=== PATIENT | male | born 1935 | race Hispanic/Latino ===

== ENCOUNTER 2018-02-09 16:04 | Inpatient (IN) | payer OTHER ==
[2018-02-09] MEDS ORDERED: Carbidopa/Levodopa 25/250 PO STA (17:17)
--- NOTE | 2018-02-09 17:19 | ED PDOC ---
HPI: Psych/Substance Abuse Time Seen by Provider: 02/09/18 17:16 Chief Complaint (Nursing): Psychiatric Evaluation Chief Complaint (Provider): PSYCH History Per: Patient (82 Y/O MALE H/O [facility], SENT BY [facility] FOR EVALUATION OF SUICIDAL IDEATION AND POSSIBLE MEKHI-PSYCH ADMISSION BY PSYCHIATRIST..) Past Medical History Reviewed: Historical Data, Nursing Documentation, Vital Signs Vital Signs: Last Vital Signs Temp 98.2 F 02/09/18 16:22 Pulse 74 02/09/18 16:22 Resp 16 02/09/18 16:22 BP 117/54 L 02/09/18 16:22 Pulse Ox 98 02/09/18 16:22 - Medical History PMH: HTN, Parkinson's Disease - Family History Family History: States: Unknown Family Hx - Immunization History Hx Tetanus Toxoid Vaccination: No Hx Influenza Vaccination: No Hx Pneumococcal Vaccination: No - Allergies Allergies/Adverse Reactions: Allergies Allergy/AdvReac Type Severity Reaction Status Date / Time Penicillins Allergy RASH Verified 02/09/18 16:22 Review of Systems ROS Statement: Except As Marked, All Systems Reviewed And Found Negative Physical Exam - Reviewed Nursing Documentation Reviewed: Yes Vital Signs Reviewed: Yes - Physical Exam Appears: Positive for: Well, Non-toxic, No Acute Distress Head Exam: Positive for: ATRAUMATIC, NORMAL INSPECTION, NORMOCEPHALIC Skin: Positive for: Normal Color, Warm, DRY Eye Exam: Positive for: EOMI, Normal appearance, PERRL ENT: Positive for: Normal ENT Inspection Neck: Positive for: Normal, Painless ROM Cardiovascular/Chest: Positive for: Regular Rate, Rhythm Respiratory: Positive for: CNT, Normal Breath Sounds Gastrointestinal/Abdominal: Positive for: Normal Exam, Soft Back: Positive for: Normal Inspection Extremity: Positive for: Normal ROM Neurologic/Psych: Positive for: Alert, Oriented - Laboratory Results Result Diagrams: 02/09/18 17:44 02/09/18 17:44 - ECG O2 Sat by Pulse Oximetry: 98 - Progress ED Course And Treament: cxr: nad Disposition - Clinical Impression Clinical Impression: Suicidal ideation - Patient ED Disposition Is Patient to be Admitted: Transfer of Care - Disposition Disposition: Transfer of Care Disposition Time: 19:58 Condition: FAIR Patient Signed Over To: Zurdo Ochoa Handoff Comments: pending crisis eval
[2018-02-09 17:50] LABS: BASO % 0.3 % (0.0-2.0); EOS # 0.3 K/uL (0.0-0.7); EOS % 3.6 % (0.0-4.0); LYMPH # 3.4 K/uL (1.0-4.3); LYMPH % 42.2 % (20.0-40.0); MEAN CELL VOLUME 94.1 fl (80.0-94.0); MEAN CORPUSCULAR HEMOGLOBIN 30.8 pg (27.0-31.0); MEAN CORPUSCULAR HGB CONC 32.8 g/dL (33.0-37.0); MEAN PLATELET VOLUME 8.4 fl (7.2-11.7); MONO # 0.7 K/uL (0.0-0.8); MONO % 8.6 % (0.0-10.0); NEUT # 3.7 K/uL (1.8-7.0); NEUT % 45.3 % (50.0-75.0); NRBC % 0.1 % (0.0-0.0); RBC 3.9 Mil/uL (4.40-5.90); RED CELL DISTRIBUTION WIDTH 14.5 % (11.5-14.5); WHITE BLOOD COUNT 8.1 K/uL (4.8-10.8)
--- NOTE | 2018-02-09 17:55 | RAD ---
Date of service: 02/09/2018 HISTORY: ROUTINE COMPARISON: No prior. FINDINGS: LUNGS: No active pulmonary disease. PLEURA: No significant pleural effusion identified, no pneumothorax apparent. CARDIOVASCULAR: Atherosclerotic calcifications identified primarily aortic arch. No radiographic findings to suggest acute or significant cardiovascular disease. Incidental Finding(s): Postoperative changes related to sternotomy. OSSEOUS STRUCTURES: No significant abnormalities. VISUALIZED UPPER ABDOMEN: Normal. OTHER FINDINGS: None. IMPRESSION: No active disease.
[2018-02-09 18:04] LABS: ALB/GLOB RATIO 1.2 (1.0-2.1); ALBUMIN 4.1 g/dL (3.5-5.0); ALT/SGPT 34 U/L (21-72); AST/SGOT 34 U/L (17-59); BLOOD UREA NITROGEN 26 mg/dl (9-20); CALCIUM 9.1 mg/dL (8.4-10.2); GFR NON-AFRICAN AMERICAN > 60
[2018-02-09 18:49] LABS: SQUAMOUS EPITHIAL < 1 /hpf (0-5); URINE BACTERIA RARE (<OCC); URINE BILIRUBIN NEGATIVE (NEGATIVE); URINE BLOOD SMALL (NEGATIVE); URINE CLARITY CLEAR (Clear); URINE COLOR YELLOW (YELLOW); URINE GLUCOSE (UA) NEG (NEGATIVE); URINE LEUKOCYTE ESTERASE NEG Leu/uL (Negative); URINE PROTEIN NEGATIVE (NEGATIVE); URINE UROBILINOGEN 0.2-1.0 mg/dL (0.2-1.0)
[2018-02-09 19:06] LABS: BARBITURATES, UR NEGATIVE (NEGATIVE); BENZODIAZEPINES, UR NEGATIVE (NEGATIVE); OPIATES, UR NEGATIVE (NEGATIVE); PHENCYCLIDINE, UR NEGATIVE (NEGATIVE)
--- NOTE | 2018-02-09 21:19 | ED PDOC ---
- Laboratory Results Result Diagrams: 02/09/18 17:44 02/09/18 17:44 - ECG ECG: Positive for: Interpreted By Me ECG Rhythm: Positive for: Sinus Rhythm. Negative for: ST/T Changes Rate: 74 O2 Sat by Pulse Oximetry: 98 - Progress ED Course And Treament: 1999 Signed out to me pending crisis disposition. 2030 On my initial evaluation, pt. in no distress. L sided facial droop noted. Pt. is AOx1. Previous records do not indicate L sided facial droop. Spoke with Yoni Brown RN director who has cared for pt. in the past, states that no note indicate L sided facial droop but she has a picture of the patient taken on 07/2017 which does show a L sided facial droop. Case d/w Dr. Resendiz, pt.'s PMD, who also reports that L sided facial droop is chronic and that pt. has hx of previous CVAs. As per Don CARPENTER who evaluated pt and spoke with Dr. Martinez. Pt. is to be admitted under Dr. Martinez for Major Depressive Disorder. Disposition - Clinical Impression Clinical Impression: Major depressive disorder - POA Present On Arrival: None - Disposition Disposition: Admitted as In-Patient Disposition Time: 20:30 Condition: FAIR
[2018-02-09] MEDS ORDERED: Magnesium Hydroxide Susp 30 ml UD PO PRN (23:18)
[2018-02-09] MEDS ORDERED: Alum-Mag Hydrox-Simethicone Susp (30 mL) PO PRN (23:18)
[2018-02-09] MEDS ORDERED: Bismuth Subsalicylate 262 mg/15 ml Sus (240 ml) PO PRN (23:18)
[2018-02-09] MEDS ORDERED: POLYETHYLENE GLYCOL 3350 17 GM/Dose PACKET PO PRN (23:44)
[2018-02-09] MEDS ORDERED: Albuterol-Ipratrop 3 mg / 0.5 (3 ml) UD INH PRN (23:47)
--- NOTE | 2018-02-09 23:52 | PCM.BM ---
<LantiguaDavid - Last Filed: 02/09/18 23:50> Treatment Plan Problems - Problems identified on initial assessmt Hopelessness/Helplessness Date Initiated: 02/09/18 Time Initiated: 23:51 Assessment reference: NA Status: Active Feelings of Worthlessness Date Initiated: 02/09/18 Time Initiated: 23:51 Assessment reference: NA Status: Active Social Isolation Date Initiated: 02/09/18 Time Initiated: 23:51 Assessment reference: NA Status: Active Self Care Deficit Date Initiated: 02/09/18 Time Initiated: 23:52 Assessment reference: NA Status: Active Treatment assets and liabiliti Patient Assests: cooperative, negotiates basic needs Patient Liabilities: medical problems, imparied memory - Milieu Protocol Maintain good personal hygiene: every shift Encourage regular showers, every shift Remind patient to perform daily oral care, every shift Assist patient to perform ADL's Conduct patient checks and document Observation sheet: Q15 minutes Maintain personal safety: every shift Educate patient to report safety concerns to staff, every shift Monitor environment for contraband/sharps Medication safety: Monitor for expected outcome, potential side effects: every shift, Assess barriers to learning: every shift, Assess readiness for medication education: every shift <Antonella Henry - Last Filed: 02/12/18 08:24> - Diagnosis (1) Major depressive disorder Status: Acute Interventions: Medication management, Individual and group therapy, Psychoeducation 02/12/18 08:24 <Lamar Chacon - Last Filed: 02/12/18 11:28> Family Contact Family involvement: Famliy/SO not involved - [facility] Agency contact number: [phone] - Goals for Treatment Patient goals for treatment: Pt's goal is to improve overall mood. Pt will be free of suicidal thoughts. Pt will develop strategies for thought distraction when rimunating on the past. Discharge/Continuing Care - Education Needs Education Needs: Patient Medication, Patient Diagnosis/Disease Process, Patient Coping Skills, Patient Community resources, Patient Activities of Daily Living, Patient Nutrition, Patient Uses of Medical Equipment, Patient Health Practices/Safety, Patient Personal Hygiene/Grooming, Patient Aftercare Safety Plan - Discharge Discharge Criteria: Tolerates medication w/o severe side effects, Free of Suicidal thoughts, Normal sleep pattern, Ability to care for self, Reduction of target symptoms Discharge to:: Group Home - Additional Comments 02/12/18 11:17 Pt seen and discussed in team meeting. Interdisciplinary team members met with pt at bedside in room 306-2. Pt was observed to be lying in bed awake. Reason for admission reviewed and discussed. Pt reported that the center where he resides sent him here because of "stress." Pt reported feeling stressed because "a lot of things aggravate me." Pt reported that he also misses his parents who are . Pt reported having no family. Pt reported feeling sad, lonely and having mood swings. Pt also present with paranoia in the context that he reported the tax compliance agent of the center where he resides wants to kill him. Pt reported that the tax compliance agent does not like him and wants to throw him out. Pt denied acute SI and HI. Pt denied AVH. Pt presented as tearful during the meeting. Pt's medical and social issues reviewed. Pt's medications reviewed. Pt is currently prescribed Nuplazid which the hospital pharmacy does not carry. Brand Attendant will contact [facility] and inquire about medication being provided to the hospital for administration of same. Tx plan reviewed and discussed; Q15 min round; daily psychiatric assessment; daily RN monitoring; medication monitoring; SW to complete assessment and obtain collateral information; activity and clinical activities to be completed 1:1 in pt's room. SW to continue to follow case. - Treatment Team Participation Discussed with Family/SO: No Was Patient/Family/SO present at Treatment Team Meeting: Yes (Pt seen at bedside in room 306-2.)
[2018-02-10 03:41] VITALS: O2SAT 98
[2018-02-10 07:09] LABS: MEAN CELL VOLUME 95.2 fl (80.0-94.0); MEAN CORPUSCULAR HEMOGLOBIN 31.2 pg (27.0-31.0); MEAN CORPUSCULAR HGB CONC 32.8 g/dL (33.0-37.0); RBC 3.83 Mil/uL (4.40-5.90); RED CELL DISTRIBUTION WIDTH 14.6 % (11.5-14.5); WHITE BLOOD COUNT 7.7 K/uL (4.8-10.8)
[2018-02-10 07:34] LABS: T4 7.13 ug/dl (5.5-11.0)
[2018-02-10 07:51] LABS: IRON 91 ug/dL (49-181)
[2018-02-10 07:56] LABS: ALB/GLOB RATIO 1.2 (1.0-2.1); ALT/SGPT 23 U/L (21-72); AST/SGOT 36 U/L (17-59); BLOOD UREA NITROGEN 24 mg/dl (9-20); CALCIUM 9.2 mg/dL (8.4-10.2); GFR NON-AFRICAN AMERICAN > 60; HDL CHOLESTEROL 39 MG/DL (30-70); LDL CHOLESTEROL 117 mg/dL (0-129)
[2018-02-10 08:00] LABS: % IRON SATURATION 33 % (20-55); TOTAL IRON BINDING CAPACITY 278 ug/dL (250-450)
[2018-02-10] MEDS: Levothyroxine 88 MCG TAB PO SCH (08:41)
--- NOTE | 2018-02-10 08:56 | PCM.PSYCH ---
Initial Psychiatric Evaluation - Initial Psychiatric Evaluation Type of Admission: Voluntary Legal Status: Capacity Chief Complaint (in patient's own words): i have mood swings Patient's Reaction to Hospitalization: pt is upset. History of Present Illness and Precipitating Events: This is the [facility] admission here for this 82 year old male with h/o parkinsons disease and resident of [facility] sent here for admission because of pt being increasingly depressed and expressing suicidal plans of overdosing on pills.pt has been depressed for a while since and feels lonely.pt is not on meds for depression.pt says that he gets moo swings and is prescribed depakote for it .pt says that [place] lives [place] and he has no means of killing himself but he has been having thoughts of not wanting to live anymore.pt is able to contract for safety. Current Medications: Active Medications Generic Name Dose Route Start Last Admin Trade Name Freq PRN Reason Stop Dose Admin Acetaminophen 650 mg 02/09/18 23:18 Tylenol 325mg Tab PO Q4 PRN Pain, moderate (4-7) Al Hydrox/Mg Hydrox/Simethicone 30 ml 02/09/18 23:18 Maalox Plus 30 Ml PO Q4 PRN Dyspepsia Albuterol/Ipratropium 3 ml 02/09/18 23:47 Duoneb 3 Mg/0.5 Mg (3 Ml) Ud INH RQ6 PRN Shortness of Breath Bismuth Subsalicylate 524 mg 02/09/18 23:18 Pepto-Bismol PO Q4 PRN Diarrhea Levothyroxine Sodium 88 mcg 02/10/18 06:30 02/10/18 08:41 Synthroid PO 88 mcg DAILY@0630 JULIAN Administration Lorazepam 0.5 mg 02/09/18 23:18 Ativan PO 02/23/18 23:19 HS PRN Insomnia Lorazepam 0.5 mg 02/09/18 23:18 Ativan PO 02/23/18 23:19 Q6 PRN Anixety/Agitation Magnesium Hydroxide 30 ml 02/09/18 23:18 Milk Of Magnesia PO HS PRN Constipation Midodrine 5 mg 02/10/18 09:00 02/10/18 08:41 Proamatine PO 5 mg BID JULIAN Administration Polyethylene Glycol 17 gm 02/09/18 23:44 Miralax PO DAILY PRN Constipation Past Psychiatric History - Past Psychiatric History Previous Treatment History: None At [facility] hospital: at nursing facility Nature of Treatment: depakote for mood symptoms History of Abuse: denies History of ETOH/Drug Use: denies History of Family Illness: denies Pertinent Medical Hx (Current Medical&Sleep Prob, Allergies): Allergies Allergy/AdvReac Type Severity Reaction Status Date / Time Penicillins Allergy RASH Verified 02/09/18 16:22 Acetaminophen [Tylenol Extra Strength] 2 tab PO DAILY 02/09/18 Amino Acids/Protein Hydrolys [Pre Protein 20 Liquid] 30 ml PO BID 02/09/18 Aspirin [Aspirin Chewable] 81 mg PO DAILY 02/09/18 Bisacodyl [Correctol] 5 mg PO PRN PRN 02/09/18 Carbidopa/Levodopa [Sinemet Cr 25-100 Tablet] 1 tab PO DAILY 02/09/18 Dextran 70/Hypromellose [Artificial Tears] 1 drop BOTHEYES BID 02/09/18 Divalproex [Depakote DR] 250 mg PO BID 02/09/18 Docusate Sodium/Sennosides A [Senokot S 50 MG-8.6 MG] 2 tab PO DAILY 02/09/18 Ipratropium/Albuterol Sulfate [Iprat-Albut 0.5-3(2.5) mg/3 ml] 1 puff INH PRN PRN 02/09/18 Levothyroxine Sodium [Synthroid] 88 mcg PO DAILY 02/09/18 Lorazepam [Ativan] 0.5 mg PO BID 02/09/18 Magnesium Hydroxide [Milk of Magnesia] 30 ml PO PRN PRN 02/09/18 Midodrine HCl 5 mg PO BID 02/09/18 Mirtazapine [Remeron] 30 mg PO DAILY 02/09/18 Mupirocin 2% Oint UD [Bactroban Ointment] 1 appful TOP DAILY 02/09/18 Pimavanserin Tartrate [Nuplazid] 34 mg PO DAILY 02/09/18 Polyethylene Glycol 3350 [Miralax] 17 mg PO PRN PRN 02/09/18 Zinc Oxide [Boudreauxs] 1 appful TOP DAILY 02/09/18 h/o : Parkinson's disease,Hypothyroidism Review of Systems - Review of Systems All systems: reviewed and no additional remarkable complaints except Mental Status Examination - Personal Presentation Personal Presentation: Looks stated age - Affect Affect: Constricted - Motor Activity Motor Activity: Other - Reliability in Providing Information Reliability in Providing Information: Fair - Speech Speech: Relevant - Mood Mood: Depressed, Anxious - Formal Thought Process Formal Thought Process: Paranoia, Flight of ideas - Obsessions/Compulsions Obsessions: No Compulsions: No - Cognitive Functions Orientation: Person, Place, Situation Sensorium: Alert Attention/Concentration: Easily distracted Abstract Thinking: Kenvir Estimate of Intelligence: Average Judgement: Imparied, as evidence by: Poor judgement, Imparied, as evidence by: Lack of insight into illness Memory: Recent imparied as evidence by:Inability to complete 3/3 object recall, Remote intact, as evidenced by: Ability to recall historical events - Risk Risk: Suicidal, Diminished functioning - Strength & Assets Inventory Strength & Assets Inventory: Cooperative DSM 5 DX - DSM 5 DSM 5 Diagnosis: major depression,severe r/o bipolar disorder - Recommended/Plan of Treatment Treatment Recommendations and Plan of Treatment: Pt has agreed to start depakote 250 mgbid and remeron 30 mg franco to stabilize the mood and depression and will engage pt in therapy and unit therapeutic [facility]. will have hospitalist consult to address his medical issues podiatry consult called for evaluation of bilateral heel injury.
--- NOTE | 2018-02-10 11:30 | CP.PCM.CON ---
History of Present Illness - History of Present Illness History of Present Illness: 82 yo male with history of Parkinson Disease admitted to [facility] because of worsening depression. Review of Systems - Review of Systems Systems not reviewed;Unavailable: Dementia, Altered Mental Status Past Patient History - Tetanus Immunizations Tetanus Immunization: Unknown - Past Social History Smoking Status: Never Smoked - CARDIAC Hx Cardiac Disorders: Yes - PULMONARY Hx Respiratory Disorders: Yes - NEUROLOGICAL Hx Neurological Disorder: Yes - MUSCULOSKELETAL/RHEUMATOLOGICAL Hx Falls: Yes ("Fell a long time ago") - PSYCHIATRIC Hx Substance Use: No Meds Allergies/Adverse Reactions: Allergies Allergy/AdvReac Type Severity Reaction Status Date / Time Penicillins Allergy RASH Verified 02/09/18 16:22 - Medications Medications: Current Medications Acetaminophen (Tylenol 325mg Tab) 650 mg PO Q4 PRN PRN Reason: Pain, moderate (4-7) Al Hydrox/Mg Hydrox/Simethicone (Maalox Plus 30 Ml) 30 ml PO Q4 PRN PRN Reason: Dyspepsia Albuterol/Ipratropium (Duoneb 3 Mg/0.5 Mg (3 Ml) Ud) 3 ml INH RQ6 PRN PRN Reason: Shortness of Breath Aspirin (Aspirin Chewable) 81 mg PO DAILY [facility] Bismuth Subsalicylate (Pepto-Bismol) 524 mg PO Q4 PRN PRN Reason: Diarrhea Carbidopa/Levodopa (Sinemet Cr) 1 tab PO DAILY [facility] Levothyroxine Sodium (Synthroid) 88 mcg PO DAILY@0630 [facility] Last Admin: 02/10/18 08:41 Dose: 88 mcg Lorazepam (Ativan) 0.5 mg PO HS PRN PRN Reason: Insomnia Stop: 02/23/18 23:19 Lorazepam (Ativan) 0.5 mg PO Q6 PRN PRN Reason: Anixety/Agitation Stop: 02/23/18 23:19 Magnesium Hydroxide (Milk Of Magnesia) 30 ml PO HS PRN PRN Reason: Constipation Midodrine (Proamatine) 5 mg PO BID [facility] Last Admin: 02/10/18 08:41 Dose: 5 mg Polyethylene Glycol (Miralax) 17 gm PO DAILY PRN PRN Reason: Constipation Physical Exam - Constitutional Appears: No Acute Distress, Confused, Cachectic, Chronically Ill - Head Exam Head Exam: ATRAUMATIC - Eye Exam Eye Exam: absent: Scleral icterus - ENT Exam ENT Exam: Mucous Membranes Moist - Neck Exam Neck exam: Negative for: Meningismus - Respiratory Exam Respiratory Exam: absent: Rales, Rhonchi, Wheezes, Respiratory Distress - Cardiovascular Exam Cardiovascular Exam: REGULAR RHYTHM, +S1, +S2 - GI/Abdominal Exam GI & Abdominal Exam: Soft. absent: Tenderness - Rectal Exam Rectal Exam: Deferred - Neurological Exam Neurological exam: Alert - Psychiatric Exam Psychiatric exam: Flat Affect - Skin Skin Exam: Dry, Intact Results - Vital Signs Recent Vital Signs: Last Vital Signs Temp 97.9 F 02/10/18 06:00 Pulse 76 02/10/18 06:00 Resp 18 02/10/18 06:00 BP 136/58 L 02/10/18 06:00 Pulse Ox 98 02/10/18 03:41 - Labs Result Diagrams: 02/10/18 06:30 02/10/18 06:30 Labs: Laboratory Results - last 24 hr 02/09/18 02/09/18 02/09/18 17:44 17:44 17:44 WBC 8.1 RBC 3.90 L Hgb 12.0 Hct 36.7 MCV 94.1 H MCH 30.8 MCHC 32.8 L RDW 14.5 Plt Count 240 MPV 8.4 Neut % (Auto) 45.3 L Lymph % (Auto) 42.2 H Beckham % (Auto) 8.6 Eos % (Auto) 3.6 Baso % (Auto) 0.3 Neut # (Auto) 3.7 Lymph # (Auto) 3.4 Beckham # (Auto) 0.7 Eos # (Auto) 0.3 Baso # (Auto) 0.0 Sodium 142 Potassium 4.8 Chloride 108 H Carbon Dioxide 27 Anion Gap 12 BUN 26 H Creatinine 0.9 Est GFR ( Amer) > 60 Est GFR (Non-Af Amer) > 60 Random Glucose 82 Calcium 9.1 Iron TIBC % Saturation Ferritin Total Bilirubin 0.4 AST 34 ALT 34 Alkaline Phosphatase 75 Total Protein 7.3 Albumin 4.1 Globulin 3.2 Albumin/Globulin Ratio 1.2 Triglycerides Cholesterol LDL Cholesterol Direct HDL Cholesterol Vitamin B12 Free T4 Thyroxine (T4) TSH 3rd Generation 2.36 Urine Color Urine Clarity Urine pH Ur Specific [place] Urine Protein Urine Glucose (UA) Urine Ketones Urine Blood Urine Nitrate Urine Bilirubin Urine Urobilinogen Ur Leukocyte Esterase Urine RBC (Auto) Urine Microscopic WBC Ur Squamous Epith Cells Urine Bacteria Urine Opiates Screen Urine Methadone Screen Ur Barbiturates Screen Valproic Acid 29.7 L Ur Phencyclidine Scrn Ur Amphetamines Screen U Benzodiazepines Scrn U Oth Cocaine Metabols U Cannabinoids Screen Alcohol, Quantitative < 10 02/09/18 02/09/18 02/10/18 18:41 18:41 06:30 WBC 7.7 RBC 3.83 L Hgb 12.0 Hct 36.5 MCV 95.2 H MCH 31.2 H MCHC 32.8 L RDW 14.6 H Plt Count 254 MPV Neut % (Auto) Lymph % (Auto) Beckham % (Auto) Eos % (Auto) Baso % (Auto) Neut # (Auto) Lymph # (Auto) Beckham # (Auto) Eos # (Auto) Baso # (Auto) Sodium Potassium Chloride Carbon Dioxide Anion Gap BUN Creatinine Est GFR ( Amer) Est GFR (Non-Af Amer) Random Glucose Calcium Iron TIBC % Saturation Ferritin Total Bilirubin AST ALT Alkaline Phosphatase Total Protein Albumin Globulin Albumin/Globulin Ratio Triglycerides Cholesterol LDL Cholesterol Direct HDL Cholesterol Vitamin B12 Free T4 Thyroxine (T4) TSH 3rd Generation Urine Color Yellow Urine Clarity Clear Urine pH 6.0 Ur Specific [place] 1.025 Urine Protein Negative Urine Glucose (UA) Neg Urine Ketones 20 Urine Blood Small Urine Nitrate Negative Urine Bilirubin Negative Urine Urobilinogen 0.2-1.0 Ur Leukocyte Esterase Neg Urine RBC (Auto) 5 H Urine Microscopic WBC 2 Ur Squamous Epith Cells < 1 Urine Bacteria Rare Urine Opiates Screen Negative Urine Methadone Screen Negative Ur Barbiturates Screen Negative Valproic Acid Ur Phencyclidine Scrn Negative Ur Amphetamines Screen Negative U Benzodiazepines Scrn Negative U Oth Cocaine Metabols Negative U Cannabinoids Screen Negative Alcohol, Quantitative 02/10/18 02/10/18 02/10/18 06:30 06:30 06:30 WBC RBC Hgb Hct MCV MCH MCHC RDW Plt Count MPV Neut % (Auto) Lymph % (Auto) Beckham % (Auto) Eos % (Auto) Baso % (Auto) Neut # (Auto) Lymph # (Auto) Beckham # (Auto) Eos # (Auto) Baso # (Auto) Sodium 143 Potassium 4.4 Chloride 105 Carbon Dioxide 29 Anion Gap 13 BUN 24 H Creatinine 0.8 Est GFR ( Amer) > 60 Est GFR (Non-Af Amer) > 60 Random Glucose 75 Calcium 9.2 Iron 91 TIBC 278 % Saturation 33 Ferritin 115.0 Total Bilirubin 0.6 AST 36 ALT 23 Alkaline Phosphatase 71 Total Protein 7.3 Albumin 4.0 Globulin 3.3 Albumin/Globulin Ratio 1.2 Triglycerides 83 Cholesterol 173 LDL Cholesterol Direct 117 HDL Cholesterol 39 Vitamin B12 822 Free T4 1.24 Thyroxine (T4) 7.13 TSH 3rd Generation 4.39 Urine Color Urine Clarity Urine pH Ur Specific [place] Urine Protein Urine Glucose (UA) Urine Ketones Urine Blood Urine Nitrate Urine Bilirubin Urine Urobilinogen Ur Leukocyte Esterase Urine RBC (Auto) Urine Microscopic WBC Ur Squamous Epith Cells Urine Bacteria Urine Opiates Screen Urine Methadone Screen Ur Barbiturates Screen Valproic Acid Ur Phencyclidine Scrn Ur Amphetamines Screen U Benzodiazepines Scrn U Oth Cocaine Metabols U Cannabinoids Screen Alcohol, Quantitative Assessment & Plan (1) Depression Status: Acute Comment: psyche is managing (2) Parkinson disease Status: Chronic Comment: comtinue Sinemet
--- NOTE | 2018-02-10 13:52 | CP.PCM.CON ---
History of Present Illness - History of Present Illness History of Present Illness: Podiatry consult note for attending Dr. Shannon: 82 y/o M patient with PMH of Parkinson, depression and suicidal attempt seen and evaluated at the psych unit for b/l heel deep tissue injury. Patient was sitting in his be and NAD. Patient is poor historian and his information obtained through his nurse and his chart. His nurse states that the patient admitted from the senior care as he attempted to kill himself. She states that he has hard lesions on the back of his heels. She denies any overnight acute events, She denies any overnight F/N/V/C or SOB. PMH: Parkinson, depression and suicidal attempt. PSH: Couldn't be obtained Allergies: Penicillins. Social Hx: Lives in a senior care. Review of Systems - Review of Systems Review of Systems: As per HPI Past Patient History - Tetanus Immunizations Tetanus Immunization: Unknown - Past Social History Smoking Status: Never Smoked - CARDIAC Hx Cardiac Disorders: Yes - PULMONARY Hx Respiratory Disorders: Yes - NEUROLOGICAL Hx Neurological Disorder: Yes - MUSCULOSKELETAL/RHEUMATOLOGICAL Hx Falls: Yes ("Fell a long time ago") - PSYCHIATRIC Hx Substance Use: No Meds Allergies/Adverse Reactions: Allergies Allergy/AdvReac Type Severity Reaction Status Date / Time Penicillins Allergy RASH Verified 02/09/18 16:22 - Medications Medications: Current Medications Acetaminophen (Tylenol 325mg Tab) 650 mg PO Q4 PRN PRN Reason: Pain, moderate (4-7) Al Hydrox/Mg Hydrox/Simethicone (Maalox Plus 30 Ml) 30 ml PO Q4 PRN PRN Reason: Dyspepsia Albuterol/Ipratropium (Duoneb 3 Mg/0.5 Mg (3 Ml) Ud) 3 ml INH RQ6 PRN PRN Reason: Shortness of Breath Aspirin (Aspirin Chewable) 81 mg PO DAILY [facility] Bismuth Subsalicylate (Pepto-Bismol) 524 mg PO Q4 PRN PRN Reason: Diarrhea Carbidopa/Levodopa (Sinemet Cr) 1 tab PO DAILY [facility] Levothyroxine Sodium (Synthroid) 88 mcg PO DAILY@0630 [facility] Last Admin: 02/10/18 08:41 Dose: 88 mcg Lorazepam (Ativan) 0.5 mg PO HS PRN PRN Reason: Insomnia Stop: 02/23/18 23:19 Lorazepam (Ativan) 0.5 mg PO Q6 PRN PRN Reason: Anixety/Agitation Stop: 02/23/18 23:19 Magnesium Hydroxide (Milk Of Magnesia) 30 ml PO HS PRN PRN Reason: Constipation Midodrine (Proamatine) 5 mg PO BID [facility] Last Admin: 02/10/18 08:41 Dose: 5 mg Polyethylene Glycol (Miralax) 17 gm PO DAILY PRN PRN Reason: Constipation Physical Exam - Extremities Exam Additional comments: B/L LE focused exam: Vasc: DP/PT faintly palpable 1/4 b/l. Cap refill < 3 sec to all digits, Temp gradient warm to cool from proximal to distal b/l. No edema noted. Neuro: Couldn't be assessed. Patient is not cooperative. Derm: B/L heels are covered with dry black eschars that were easily removed with the skin intact under the left one and superficial fresh wound under the right one 0.4cmX0.3cm. minimal sanguineous drainage, no malodor, No probe to bone, Minimal erythema noted. no clinical signs of active infection. MSK: B/L arthritic changes in all the major foot and ankle joints, Rigid Hammer toes noted 2-5 b/l. Muscle power couldn't be assessed. Patient is not cooperative. Results - Vital Signs Recent Vital Signs: Last Vital Signs Temp 97.9 F 02/10/18 06:00 Pulse 76 02/10/18 06:00 Resp 18 02/10/18 06:00 BP 136/58 L 02/10/18 06:00 Pulse Ox 98 02/10/18 03:41 - Labs Result Diagrams: 02/10/18 06:30 02/10/18 06:30 Labs: Laboratory Results - last 24 hr 02/09/18 02/09/18 02/09/18 17:44 17:44 17:44 WBC 8.1 RBC 3.90 L Hgb 12.0 Hct 36.7 MCV 94.1 H MCH 30.8 MCHC 32.8 L RDW 14.5 Plt Count 240 MPV 8.4 Neut % (Auto) 45.3 L Lymph % (Auto) 42.2 H [place] % (Auto) 8.6 Eos % (Auto) 3.6 Baso % (Auto) 0.3 Neut # (Auto) 3.7 Lymph # (Auto) 3.4 [place] # (Auto) 0.7 Eos # (Auto) 0.3 Baso # (Auto) 0.0 Sodium 142 Potassium 4.8 Chloride 108 H Carbon Dioxide 27 Anion Gap 12 BUN 26 H Creatinine 0.9 Est GFR ( Amer) > 60 Est GFR (Non-Af Amer) > 60 Random Glucose 82 Calcium 9.1 Iron TIBC % Saturation Ferritin Total Bilirubin 0.4 AST 34 ALT 34 Alkaline Phosphatase 75 Total Protein 7.3 Albumin 4.1 Globulin 3.2 Albumin/Globulin Ratio 1.2 Triglycerides Cholesterol LDL Cholesterol Direct HDL Cholesterol Vitamin B12 Free T4 Thyroxine (T4) TSH 3rd Generation 2.36 Urine Color Urine Clarity Urine pH Ur Specific Sod Urine Protein Urine Glucose (UA) Urine Ketones Urine Blood Urine Nitrate Urine Bilirubin Urine Urobilinogen Ur Leukocyte Esterase Urine RBC (Auto) Urine Microscopic WBC Ur Squamous Epith Cells Urine Bacteria Urine Opiates Screen Urine Methadone Screen Ur Barbiturates Screen Valproic Acid 29.7 L Ur Phencyclidine Scrn Ur Amphetamines Screen U Benzodiazepines Scrn U Oth Cocaine Metabols U Cannabinoids Screen Alcohol, Quantitative < 10 02/09/18 02/09/18 02/10/18 18:41 18:41 06:30 WBC 7.7 RBC 3.83 L Hgb 12.0 Hct 36.5 MCV 95.2 H MCH 31.2 H MCHC 32.8 L RDW 14.6 H Plt Count 254 MPV Neut % (Auto) Lymph % (Auto) [place] % (Auto) Eos % (Auto) Baso % (Auto) Neut # (Auto) Lymph # (Auto) [place] # (Auto) Eos # (Auto) Baso # (Auto) Sodium Potassium Chloride Carbon Dioxide Anion Gap BUN Creatinine Est GFR ( Amer) Est GFR (Non-Af Amer) Random Glucose Calcium Iron TIBC % Saturation Ferritin Total Bilirubin AST ALT Alkaline Phosphatase Total Protein Albumin Globulin Albumin/Globulin Ratio Triglycerides Cholesterol LDL Cholesterol Direct HDL Cholesterol Vitamin B12 Free T4 Thyroxine (T4) TSH 3rd Generation Urine Color Yellow Urine Clarity Clear Urine pH 6.0 Ur Specific Sod 1.025 Urine Protein Negative Urine Glucose (UA) Neg Urine Ketones 20 Urine Blood Small Urine Nitrate Negative Urine Bilirubin Negative Urine Urobilinogen 0.2-1.0 Ur Leukocyte Esterase Neg Urine RBC (Auto) 5 H Urine Microscopic WBC 2 Ur Squamous Epith Cells < 1 Urine Bacteria Rare Urine Opiates Screen Negative Urine Methadone Screen Negative Ur Barbiturates Screen Negative Valproic Acid Ur Phencyclidine Scrn Negative Ur Amphetamines Screen Negative U Benzodiazepines Scrn Negative U Oth Cocaine Metabols Negative U Cannabinoids Screen Negative Alcohol, Quantitative 02/10/18 02/10/18 02/10/18 06:30 06:30 06:30 WBC RBC Hgb Hct MCV MCH MCHC RDW Plt Count MPV Neut % (Auto) Lymph % (Auto) [place] % (Auto) Eos % (Auto) Baso % (Auto) Neut # (Auto) Lymph # (Auto) [place] # (Auto) Eos # (Auto) Baso # (Auto) Sodium 143 Potassium 4.4 Chloride 105 Carbon Dioxide 29 Anion Gap 13 BUN 24 H Creatinine 0.8 Est GFR ( Amer) > 60 Est GFR (Non-Af Amer) > 60 Random Glucose 75 Calcium 9.2 Iron 91 TIBC 278 % Saturation 33 Ferritin 115.0 Total Bilirubin 0.6 AST 36 ALT 23 Alkaline Phosphatase 71 Total Protein 7.3 Albumin 4.0 Globulin 3.3 Albumin/Globulin Ratio 1.2 Triglycerides 83 Cholesterol 173 LDL Cholesterol Direct 117 HDL Cholesterol 39 Vitamin B12 822 Free T4 1.24 Thyroxine (T4) 7.13 TSH 3rd Generation 4.39 Urine Color Urine Clarity Urine pH Ur Specific Sod Urine Protein Urine Glucose (UA) Urine Ketones Urine Blood Urine Nitrate Urine Bilirubin Urine Urobilinogen Ur Leukocyte Esterase Urine RBC (Auto) Urine Microscopic WBC Ur Squamous Epith Cells Urine Bacteria Urine Opiates Screen Urine Methadone Screen Ur Barbiturates Screen Valproic Acid Ur Phencyclidine Scrn Ur Amphetamines Screen U Benzodiazepines Scrn U Oth Cocaine Metabols U Cannabinoids Screen Alcohol, Quantitative Assessment & Plan - Assessment and Plan (Free Text) Assessment: 82 y/o M patientseen and evaluated at the psych unit for b/l heel deep tissue injury Plan: Patient seen and evaluated at the bedside. Plan discussed with Dr. Shannon. Charts, labs and vitals reviewed; afebrile, No leukocytosis Hard black eschars removed. B/L heels dressed using betadine, ABD, DSD and kerlix. Ordered multipodus boots. Nurses instructed to apply the multipodus boots all the times while the patient in bed. Ordered b/l foot x-ray. Thank you for consulting podiatry service. Podiatry will continue to follow up the patient while in house. - Date & Time Date: 02/10/18 Time: 13:49
--- NOTE | 2018-02-10 15:04 | CARD ---
APPROVED REPORT Date of service: 02/09/2018 EKG Measurement Heart [id number] <Conclusion> Normal sinus rhythm Left axis deviation Right bundle branch block Inferior infarct, age undetermined Abnormal ECG
[2018-02-10 17:53] LABS: FOLATE 10.2 ng/mL
[2018-02-11] MEDS: Levothyroxine 88 MCG TAB PO SCH (06:20)
[2018-02-11] MEDS ORDERED: Carbidopa/Levodopa 25/100 CR PO SCH (09:00)
--- NOTE | 2018-02-11 14:05 | PCM.PYCHPN ---
Psychiatric Progress Note - Psychiatric Progress Note Patient seen today, length of contact: pt seen and evaluated Patient Chief Complaint: pt has been still anxious and easily irritible and still with poor insight regarding his depression and suicidal thoughts and need stabilization. Problems Identified/Issues Discussed: depression,mood outbursts Medication Change: Yes (started on remeron and depakote) Medical Record Reviewed: Yes Mental Status Examination - Cognitive Function Orientation: Person, Place, Situation Memory: Intact, Remote Attention: Poor Concentration: Poor Association: WNL Fund of Knowledge: WNL - Mood Mood: Depressed, Anxious - Speech Speech: Appropriate - Formal Thought Process Formal Thought Process: Flight of ideas - Suicidal Ideation Suicidal Ideation: No - Homicidal Ideation Homicidal Ideation: No Goal/Treatment Plan - Goal/Treatment Plan Progress Toward Problem(s) and Goals/Treatment Plan: will continue the current regimen of remeron and depakote and titrate as needed to stabilize the patient . contniue supportive therapy and coordinate medical care for PD and other medical issues with hospitalist.
[2018-02-11] MEDS: Divalproex 125 mg Sprinkle Capsule PO SCH (17:01)
--- NOTE | 2018-02-11 18:38 | CP.PCM.PN ---
Subjective - Date & Time of Evaluation Date of Evaluation: 02/11/18 Time of Evaluation: 18:35 - Subjective Subjective: Podiatry Progress note for attending Dr. Shannon: 82 y/o M patient seen and evaluated at the psych unit for b/l heel deep tissue injury. Patient was sitting in his be and NAD. Patient is poor historian and his information obtained throughhis chart. As per the patient chart there was no overnight acute events, No overnight F/N/V/C or SOB. Patient was at the multipodus boot during the visit. Objective - Vital Signs/Intake and Output Vital Signs (last 24 hours): Temp Pulse Resp BP Pulse Ox 96.8 F L 75 18 107/59 L 98 02/11/18 15:53 02/11/18 15:53 02/11/18 15:53 02/11/18 15:53 02/10/18 03:41 - Medications Medications: Current Medications Acetaminophen (Tylenol 325mg Tab) 650 mg PO Q4 PRN PRN Reason: Pain, moderate (4-7) Al Hydrox/Mg Hydrox/Simethicone (Maalox Plus 30 Ml) 30 ml PO Q4 PRN PRN Reason: Dyspepsia Albuterol/Ipratropium (Duoneb 3 Mg/0.5 Mg (3 Ml) Ud) 3 ml INH RQ6 PRN PRN Reason: Shortness of Breath Aspirin (Aspirin Chewable) 81 mg PO DAILY [facility] Last Admin: 02/11/18 08:55 Dose: 81 mg Bismuth Subsalicylate (Pepto-Bismol) 524 mg PO Q4 PRN PRN Reason: Diarrhea Carbidopa/Levodopa (Sinemet Cr) 1 tab PO DAILY [facility] Last Admin: 02/11/18 08:55 Dose: 1 tab Divalproex Sodium (Depakote Sprinkles) 250 mg PO BID [facility] Last Admin: 02/11/18 17:01 Dose: 250 mg Levothyroxine Sodium (Synthroid) 88 mcg PO DAILY@0630 [facility] Last Admin: 02/11/18 06:20 Dose: 88 mcg Lorazepam (Ativan) 0.5 mg PO HS PRN PRN Reason: Insomnia Stop: 02/23/18 23:19 Lorazepam (Ativan) 0.5 mg PO Q6 PRN PRN Reason: Anixety/Agitation Stop: 02/23/18 23:19 Magnesium Hydroxide (Milk Of Magnesia) 30 ml PO HS PRN PRN Reason: Constipation Midodrine (Proamatine) 5 mg PO BID [facility] Last Admin: 02/11/18 17:01 Dose: 5 mg Mirtazapine (Remeron) 30 mg PO HS [facility] Polyethylene Glycol (Miralax) 17 gm PO DAILY PRN PRN Reason: Constipation - Labs Labs: 02/10/18 06:30 02/10/18 06:30 - Head Exam Head Exam: ATRAUMATIC - Extremities Exam Additional comments: B/L LE focused exam: Vasc: DP/PT faintly palpable 1/4 b/l. Cap refill < 3 sec to all digits, Temp gradient warm to cool from proximal to distal b/l. No edema noted. Neuro: Couldn't be assessed. Patient is not cooperative. Derm: B/L heels are covered with dry black eschars that were easily removed with the skin intact under the left one and superficial fresh wound under the right one 0.4cmX0.3cm. minimal sanguineous drainage, no malodor, No probe to bone, Minimal erythema noted. no clinical signs of active infection. MSK: B/L arthritic changes in all the major foot and ankle joints, Rigid Hammer toes noted 2-5 b/l. Muscle power couldn't be assessed. Patient is not cooperative. - Neurological Exam Neurological Exam: Awake Assessment and Plan - Assessment and Plan (Free Text) Assessment: 82 y/o M patient seen and evaluated at the psych unit for b/l heel deep tissue injury Plan: Patient seen and evaluated at the bedside. Plan discussed with Dr. Shannon. Charts, labs and vitals reviewed; afebrile, No leukocytosis B/L heels dressed using betadine, ABD, DSD and kerlix. Continue the multipodus boots all the times while the patient in bed. Ordered b/l foot x-ray. Podiatry will continue to follow up the patient while in house.
[2018-02-12] MEDS: Levothyroxine 88 MCG TAB PO SCH (06:57)
[2018-02-12] MEDS: Divalproex 125 mg Sprinkle Capsule PO SCH ×2 (08:04→17:06)
[2018-02-12] MEDS ORDERED: Carbidopa/Levodopa 25/100 CR PO SCH (09:00)
--- NOTE | 2018-02-12 09:44 | PCM.PYCHPN ---
Psychiatric Progress Note - Psychiatric Progress Note Patient seen today, length of contact: Pt evaluated, case discussed w/ team, chart reviewed Patient Chief Complaint: Depression/anxiety Problems Identified/Issues Discussed: Patient continues to report feeling depressed and anxious. He reports that he has tried to commit suicide in the past by overdose on pills. He denies current SI/plan/intent and is able to contract for safety. He reports mood lability and irritability. He also reports paranoia that the principal quality engineer of the jail wants to kill him. He continues to have chronic cognitive deficits due to dementia. No AH/VH/paranoia. No adverse effects to medications reported. Medication Change: No Medical Record Reviewed: Yes Consults ordered or reviewed: Medicine, Podiatry Mental Status Examination - Cognitive Function Orientation: Person, Situation Memory: Impaired Concentration: Poor Fund of Knowledge: Poor Decription of patient's judgement and insights: Poor I/J due to neurocognitive impairment - Mood Mood: Depressed, Anxious - Affect Affect: Constricted - Speech Speech: Appropriate - Formal Thought Process Formal Thought Process: Loosening of associations Psychotic Thoughts and Behaviors: Denies AH/VH/paranoia - Suicidal Ideation Suicidal Ideation: No - Homicidal Ideation Homicidal Ideation: No Goal/Treatment Plan - Goal/Treatment Plan Need for Continued Stay: Remain at risks for inpatient hospitalization, Severe depression anxiety Progress Toward Problem(s) and Goals/Treatment Plan: Major Depressive Disorder; Dementia; Parkinson's Disease -Continue Remeron and Depakote -Individual and group therapy -Medicine and Podiatry consults -Psychoeducation -Disposition planning Estimated Date of D/C: 02/16/18
[2018-02-13] MEDS: Levothyroxine 88 MCG TAB PO SCH (06:07)
[2018-02-13] MEDS: Divalproex 125 mg Sprinkle Capsule PO SCH ×2 (08:23→16:39)
--- NOTE | 2018-02-13 08:40 | CP.PCM.PN ---
Subjective - Date & Time of Evaluation Date of Evaluation: 02/13/18 Time of Evaluation: 08:37 - Subjective Subjective: Podiatry Progress note for attending Dr. Shannon: 82 y/o M patient seen and evaluated at the psych unit for b/l heel deep tissue injury. Patient was sleeping in his be and NAD. Patient is poor historian and his information obtained through his chart. As per the patient chart there was no overnight acute events, No overnight F/N/V/C or SOB. Patient was at the multipodus boot during the visit. Objective - Vital Signs/Intake and Output Vital Signs (last 24 hours): Temp Pulse Resp BP Pulse Ox 98.1 F 69 18 156/76 H 98 02/13/18 06:00 02/13/18 06:00 02/13/18 06:00 02/13/18 06:00 02/10/18 03:41 - Medications Medications: Current Medications Acetaminophen (Tylenol 325mg Tab) 650 mg PO Q4 PRN PRN Reason: Pain, moderate (4-7) Last Admin: 02/12/18 21:31 Dose: 650 mg Al Hydrox/Mg Hydrox/Simethicone (Maalox Plus 30 Ml) 30 ml PO Q4 PRN PRN Reason: Dyspepsia Albuterol/Ipratropium (Duoneb 3 Mg/0.5 Mg (3 Ml) Ud) 3 ml INH RQ6 PRN PRN Reason: Shortness of Breath Aspirin (Aspirin Chewable) 81 mg PO DAILY [facility] Last Admin: 02/13/18 08:23 Dose: 81 mg Bismuth Subsalicylate (Pepto-Bismol) 524 mg PO Q4 PRN PRN Reason: Diarrhea Carbidopa/Levodopa (Sinemet) 1 tab PO TID [facility] Last Admin: 02/13/18 08:24 Dose: 1 tab Divalproex Sodium (Depakote Sprinkles) 250 mg PO BID [facility] Last Admin: 02/13/18 08:23 Dose: 250 mg Levothyroxine Sodium (Synthroid) 88 mcg PO DAILY@0630 [facility] Last Admin: 02/13/18 06:07 Dose: 88 mcg Lorazepam (Ativan) 0.5 mg PO HS PRN PRN Reason: Insomnia Stop: 02/23/18 23:19 Lorazepam (Ativan) 0.5 mg PO Q6 PRN PRN Reason: Anixety/Agitation Stop: 02/23/18 23:19 Magnesium Hydroxide (Milk Of Magnesia) 30 ml PO HS PRN PRN Reason: Constipation Midodrine (Proamatine) 5 mg PO BID [facility] Last Admin: 02/13/18 08:23 Dose: 5 mg Mirtazapine (Remeron) 30 mg PO HS [facility] Last Admin: 02/12/18 21:04 Dose: 30 mg Polyethylene Glycol (Miralax) 17 gm PO DAILY PRN PRN Reason: Constipation - Labs Labs: 02/10/18 06:30 02/10/18 06:30 - Constitutional Appears: Non-toxic, No Acute Distress - Extremities Exam Additional comments: B/L LE focused exam: Vasc: DP/PT faintly palpable 1/4 b/l. Cap refill < 3 sec to all digits, Temp gradient warm to cool from proximal to distal b/l. No edema noted. Neuro: Couldn't be assessed. Patient is not cooperative. Derm: B/L heels are covered with dry black eschars that were easily removed with the skin intact under the left one and superficial fresh wound under the right one 0.4cmX0.3cm. minimal sanguineous drainage, no malodor, No probe to bone, Minimal erythema noted. no clinical signs of active infection. MSK: B/L arthritic changes in all the major foot and ankle joints, Rigid Hammer toes noted 2-5 b/l. Muscle power couldn't be assessed. Patient is not cooperative. - Neurological Exam Neurological Exam: Awake Assessment and Plan - Assessment and Plan (Free Text) Assessment: 82 y/o M patient seen and evaluated at the psych unit for b/l heel deep tissue injury Plan: Patient seen and evaluated at the bedside. Plan discussed with Dr. Shannon. Charts, labs and vitals reviewed; afebrile, No leukocytosis B/L heels dressed using betadine, Adaptic ABD, DSD and kerlix. Ordered bactroban cream to be added Continue the multipodus boots all the times while the patient in bed. b/l foot x-ray; Pending report. Podiatry will continue to follow up the patient while in house.
[2018-02-13] MEDS ORDERED: Mupirocin 2% Cream TOP SCH (09:00)
--- NOTE | 2018-02-13 09:20 | RAD ---
Date of service: 02/12/2018 PROCEDURE: Bilateral Feet Radiographs. HISTORY: ulcers COMPARISON: None. FINDINGS: BONES: Right Foot: Normal. No fracture. No osseous erosion or periosteal reaction appreciated. Left Foot: Normal. No fracture. No osseous erosion or periosteal reaction appreciated. JOINTS: Right Foot: Flexion deformity 2nd through 5th digits. Medial deviation at the 2nd MTP articulation. No articular erosions. Left Foot: Flexion deformity 2nd through 5th digits. No articular erosion. SOFT TISSUES: Right Foot: Vascular calcification. No cutaneous ulcer appreciated. Left Foot: Vascular calcification. No cutaneous ulcer appreciated OTHER FINDINGS: None. IMPRESSION: No plain radiographic evidence of osteomyelitis. If there is clinical concern regarding osteomyelitis please consider further evaluation with radionuclide bone scan or magnetic resonance imaging.
--- NOTE | 2018-02-13 09:38 | PCM.PYCHPN ---
Psychiatric Progress Note - Psychiatric Progress Note Patient seen today, length of contact: Pt evaluated, case discussed w/ team, chart reviewed Patient Chief Complaint: Depression/anxiety Problems Identified/Issues Discussed: Patient continues to report feeling depressed w/ mood fluctuations. He denies acute suicidal ideation plan/intent. He did express wishes to to staff yesterday. He continues to report mild paranoia. He continues to have chronic cognitive deficits due to dementia. No adverse effects to medications reported. Medication Change: Yes (Increase Remeron) Medical Record Reviewed: Yes Consults ordered or reviewed: Medicine, Podiatry Mental Status Examination - Cognitive Function Orientation: Person, Situation Memory: Impaired Concentration: Poor Fund of Knowledge: Poor Decription of patient's judgement and insights: Poor I/J due to neurocognitive impairment - Mood Mood: Depressed, Anxious - Affect Affect: Constricted - Speech Speech: Appropriate - Formal Thought Process Formal Thought Process: Loosening of associations Psychotic Thoughts and Behaviors: Denies AH/VH/paranoia - Suicidal Ideation Suicidal Ideation: No - Homicidal Ideation Homicidal Ideation: No Goal/Treatment Plan - Goal/Treatment Plan Need for Continued Stay: Remain at risks for inpatient hospitalization, Severe depression anxiety Progress Toward Problem(s) and Goals/Treatment Plan: Major Depressive Disorder; Dementia; Parkinson's Disease -Increase Remeron -Continue Depakote -Individual and group therapy -Medicine and Podiatry consults -Psychoeducation -Disposition planning Estimated Date of D/C: 02/16/18
[2018-02-14] MEDS: Levothyroxine 88 MCG TAB PO SCH (08:38)
[2018-02-14] MEDS: Divalproex 125 mg Sprinkle Capsule PO SCH ×2 (08:39→16:35)
[2018-02-14] MEDS ORDERED: PIMAVANSERIN TARTRATE 34 MG PO SCH (09:00)
--- NOTE | 2018-02-14 09:37 | PCM.PYCHPN ---
Psychiatric Progress Note - Psychiatric Progress Note Patient seen today, length of contact: Pt evaluated, case discussed w/ team, chart reviewed Patient Chief Complaint: Depression/anxiety Problems Identified/Issues Discussed: Patient continues to report feeling depressed, but denies acute SI. No acute behavioral issues. He continues to have chronic cognitive deficits due to dementia. No adverse effects to medications reported. Medication Change: No Medical Record Reviewed: Yes Consults ordered or reviewed: Medicine, Podiatry Mental Status Examination - Cognitive Function Orientation: Person, Place, Situation Memory: Impaired Concentration: Poor Fund of Knowledge: Poor Decription of patient's judgement and insights: Poor I/J due to neurocognitive impairment - Mood Mood: Depressed - Affect Affect: Constricted - Speech Speech: Appropriate - Formal Thought Process Formal Thought Process: Loosening of associations Psychotic Thoughts and Behaviors: Denies AH/VH/paranoia - Suicidal Ideation Suicidal Ideation: No - Homicidal Ideation Homicidal Ideation: No Goal/Treatment Plan - Goal/Treatment Plan Need for Continued Stay: Remain at risks for inpatient hospitalization, Severe depression anxiety Progress Toward Problem(s) and Goals/Treatment Plan: Major Depressive Disorder; Dementia; Parkinson's Disease -Continue Remeron -Continue Depakote -Individual and group therapy -Medicine and Podiatry consults -Psychoeducation -Disposition planning Estimated Date of D/C: 02/16/18
--- NOTE | 2018-02-15 08:01 | CP.PCM.PN ---
Subjective - Date & Time of Evaluation Date of Evaluation: 02/15/18 Time of Evaluation: 07:59 - Subjective Subjective: Podiatry Progress note for attending Dr. Shannon: 82 y/o M patient seen and evaluated at the psych unit for b/l heel deep tissue injury. Patient was sleeping in his be and NAD. Patient is poor historian and his information obtained through his chart. As per the patient chart there was no overnight acute events, No overnight F/N/V/C or SOB. Patient was at the multipodus boot during the visit. Objective - Vital Signs/Intake and Output Vital Signs (last 24 hours): Temp Pulse Resp BP Pulse Ox 97.1 F L 91 H 18 107/72 98 02/15/18 06:00 02/15/18 06:00 02/15/18 06:00 02/15/18 06:00 02/10/18 03:41 - Medications Medications: Current Medications Acetaminophen (Tylenol 325mg Tab) 650 mg PO Q4 PRN PRN Reason: Pain, moderate (4-7) Last Admin: 02/12/18 21:31 Dose: 650 mg Al Hydrox/Mg Hydrox/Simethicone (Maalox Plus 30 Ml) 30 ml PO Q4 PRN PRN Reason: Dyspepsia Albuterol/Ipratropium (Duoneb 3 Mg/0.5 Mg (3 Ml) Ud) 3 ml INH RQ6 PRN PRN Reason: Shortness of Breath Aspirin (Aspirin Chewable) 81 mg PO DAILY [facility] Last Admin: 02/14/18 08:38 Dose: 81 mg Bismuth Subsalicylate (Pepto-Bismol) 524 mg PO Q4 PRN PRN Reason: Diarrhea Carbidopa/Levodopa (Sinemet) 1 tab PO TID [facility] Last Admin: 02/14/18 16:35 Dose: 1 tab Divalproex Sodium (Depakote Sprinkles) 250 mg PO BID [facility] Last Admin: 02/14/18 16:35 Dose: 250 mg Home Med (Pimavanserin Tartrate [Nuplazid]) 34 mg PO DAILY [facility] Levothyroxine Sodium (Synthroid) 88 mcg PO DAILY@0630 [facility] Last Admin: 02/14/18 08:38 Dose: 88 mcg Lorazepam (Ativan) 0.5 mg PO HS PRN PRN Reason: Insomnia Stop: 02/23/18 23:19 Lorazepam (Ativan) 0.5 mg PO Q6 PRN PRN Reason: Anixety/Agitation Stop: 02/23/18 23:19 Magnesium Hydroxide (Milk Of Magnesia) 30 ml PO HS PRN PRN Reason: Constipation Midodrine (Proamatine) 5 mg PO BID [facility] Last Admin: 02/14/18 16:35 Dose: 5 mg Mirtazapine (Remeron) 30 mg PO HS [facility] Last Admin: 02/14/18 21:05 Dose: 30 mg Mirtazapine (Remeron) 7.5 mg PO HS [facility] Last Admin: 02/14/18 21:05 Dose: 7.5 mg Mupirocin (Bactroban Ointment) 1 applic TOP QD7 [facility] Polyethylene Glycol (Miralax) 17 gm PO DAILY PRN PRN Reason: Constipation - Labs Labs: 02/10/18 06:30 02/10/18 06:30 - Extremities Exam Additional comments: B/L LE focused exam: Vasc: DP/PT faintly palpable 1/4 b/l. Cap refill < 3 sec to all digits, Temp gradient warm to cool from proximal to distal b/l. No edema noted. Neuro: Couldn't be assessed. Patient is not cooperative. Derm: Skin looks intact at the left heel with minimal erythema. Superficial fresh wound at the right heel 0.4cmX0.3cm. minimal sanguineous drainage, no malodor, No probe to bone, Minimal erythema noted. no clinical signs of active infection. MSK: B/L arthritic changes in all the major foot and ankle joints, Rigid Hammer toes noted 2-5 b/l. Muscle power couldn't be assessed. Patient is not cooperativ e. - Neurological Exam Neurological Exam: Awake Assessment and Plan - Assessment and Plan (Free Text) Assessment: 82 y/o M patient seen and evaluated at the psych unit for b/l heel deep tissue injury Plan: Patient seen and evaluated at the bedside. Plan discussed with Dr. Shannon. Charts, labs and vitals reviewed; afebrile, No leukocytosis B/L heels dressed using Bactroban, Adaptic ABD, DSD and kerlix. Continue the multipodus boots all the times while the patient in bed. b/l foot x-ray; No evidence of OM. Podiatry will continue to follow up the patient while in house.
[2018-02-15 08:02] LABS: ALB/GLOB RATIO 1.2 (1.0-2.1); ALBUMIN 3.8 g/dL (3.5-5.0); ALT/SGPT 27 U/L (21-72); AST/SGOT 33 U/L (17-59); BLOOD UREA NITROGEN 22 mg/dl (9-20); CALCIUM 9.1 mg/dL (8.4-10.2); GFR NON-AFRICAN AMERICAN > 60
--- NOTE | 2018-02-15 08:02 | PCM.PYCHPN ---
Psychiatric Progress Note - Psychiatric Progress Note Patient seen today, length of contact: Pt evaluated, case discussed w/ team, chart reviewed Patient Chief Complaint: Depression/anxiety Problems Identified/Issues Discussed: Patient is approaching his baseline of functioning. He states that he feels that he will eventually for Parkinson's Disease, but denied acute self injurious ideation to suicidal ideation. He reports decreased appetite. His mood is stable. He continues to have chronic cognitive deficits due to dementia. No adverse effects to medications reported. Medication Change: No Medical Record Reviewed: Yes Consults ordered or reviewed: Medicine, Podiatry Mental Status Examination - Cognitive Function Orientation: Person, Place, Situation Memory: Impaired Concentration: Poor Fund of Knowledge: Poor Decription of patient's judgement and insights: Poor I/J due to neurocognitive impairment - Mood Mood: Neutral - Affect Affect: Constricted - Speech Speech: Appropriate - Formal Thought Process Formal Thought Process: Loosening of associations Psychotic Thoughts and Behaviors: Denies AH/VH/paranoia - Suicidal Ideation Suicidal Ideation: No - Homicidal Ideation Homicidal Ideation: No Goal/Treatment Plan - Goal/Treatment Plan Need for Continued Stay: Remain at risks for inpatient hospitalization, Severe depression anxiety Progress Toward Problem(s) and Goals/Treatment Plan: Major Depressive Disorder; Dementia; Parkinson's Disease -Continue Remeron -Continue Depakote -Individual and group therapy -Medicine and Podiatry consults -Psychoeducation -Disposition planning- likely discharge tomorrow as patient is improving clinically Estimated Date of D/C: 02/16/18
[2018-02-15] MEDS: Divalproex 125 mg Sprinkle Capsule PO SCH ×2 (08:08→16:49)
[2018-02-15] MEDS: Levothyroxine 88 MCG TAB PO SCH (08:08)
[2018-02-16 06:10] VITALS: BP 136/66; PULSE 66; RESP 18; TEMP 97.9
[2018-02-16] MEDS: Divalproex 125 mg Sprinkle Capsule PO SCH (08:24)
[2018-02-16] MEDS: Levothyroxine 88 MCG TAB PO SCH (08:26)
--- NOTE | 2018-02-16 08:36 | PCM.PYCHDC ---
Mental Status Examination - Mental Status Examination Orientation: Person, Place, Situation Memory: Impaired (Chronic deficits in memory, concentration, attention, association, knowledge due to neurocognitive impairment) Mood: Neutral Affect: Constricted Speech: Soft Attention: Poor Concentration: Poor Association: Loose Fund of Knowledge: Poor Formal Thought Process: Loosening of associations Description of patient's judgement and insight: Chronic poor I/J due to neurocognitive impairment Psychotic Thoughts and Behaviors: Denies AH/VH/paranoia Suicidal Ideation: No Current Homicidal Ideation?: No Discharge Summary - Discharge Note Reason for Hospitalization: 82 yo male w/ h/o depression and parkinson's disease neurocognitive impairment and psychosis, admitted for depression w/ suicidal ideation and paranoia. Psychiatric History (includes Medical, Family, Personal Hx): depakote for mood symptoms Laboratory Data: VPA 41.6 on 02/15/18 Consultations:: List each consultation separately and include: 1. Reason for request. 2. Findings. 3. Follow-up Consultations: Medicine, Podiatry Summary of Hospital Course include:: 1. Description of specific treatment plan utilized for patients during their course of treatmen. 2. Summarize the time- course for resolution of acute symptoms and/or regressed behaviors. 3. Describe issues identified and worked on during hospitalization. 4. Describe medication utilized. 5. Describe medical problems identified and treated. 6. Reassessment of suicide risk Summary of Hospital Course: Patient was admitted to the psychiatry unit. Individual and group therapy were provided. Patient was stabilized on Remeron 37.5 mg PO HS, Depakote 250 mg PO BID and recommend to continue Nuplazid 34 mg PO Daily. Patient denies acute SI/plan/intent or paranoia. He is at his baseline of functioning and is psychiatrically stable for discharge. - Diagnosis (1) Major depressive disorder Current Visit: Yes Status: Chronic - Final Diagnosis (DSM 5) Condition upon Discharge: STABLE DSM 5: Major Depressive Disorder; Parkinson's Disease Psychosis; Major Neurocognitive Impairment Disposition: TRANSF TO [facility] Follow-up Treatment Plan: Major Depressive Disorder; Parkinson's Disease Psychosis; Major Neurocognitive Impairment -Continue Remeron 37. 5 mg PO HS -Continue Depakote 250 mg PO BID; VPA 41.6 on 02/15/18 -Continue Nuplazid 34 mg PO Daily -Individual and group therapy -Medicine and Podiatry consults -Psychoeducation -Discharge to [facility] - Smoking Cessation Smoking Cessation Medication prescribed: No Reason for not providing: Not indicated - Antipsychotic Medications Pt discharged on 2 or more routine antipsychotic medications: No
== END 2018-02-16 15:30 | DRG 885 ==
LOC: H.ER 16:04 → H.ERHOLD 21:43 → H.STEP 23:09
PROVIDERS: ADMIT Psychiatry & Neurology Psychiatry; ATTEND Psychiatry & Neurology Psychiatry
PROC: GZHZZZZ Group Psychotherapy (ICD-10-PCS; principal; 2018-02-09)
PROC: GZ58ZZZ Individual Psychotherapy, Cognitive-Behavioral (ICD-10-PCS; 2018-02-09)
DX: F32.2 Major depressive disorder, single episode, severe without psychotic features (principal); R45.851 Suicidal ideations; F03.90 Unspecified dementia, unspecified severity, without behavioral disturbance, psychotic disturbance, mood disturbance, and anxiety; G20 Parkinson's disease; F41.9 Anxiety disorder, unspecified; M19.072 Primary osteoarthritis, left ankle and foot; M19.071 Primary osteoarthritis, right ankle and foot; M20.42 Other hammer toe(s) (acquired), left foot; M20.41 Other hammer toe(s) (acquired), right foot; I10 Essential (primary) hypertension; Z79.899 Other long term (current) drug therapy; Z88.0 Allergy status to penicillin